=== PATIENT | male | born 1965 | race Caucasian/White ===

== ENCOUNTER → 2017-12-11 06:13 | Outpatient (CLI) | payer BC, SELFPAY ==
--- NOTE | 2017-12-11 06:21 | CDU_ITS ---
Reason For Study: LEFT SIDED NUMBNESS Rt. Velocities/BP Lt. Velocities/BP Prox CCA 73.3/25.8 cm/sec. Prox CCA 86.2/30.5 cm/sec. Mid CCA 60.4/18.8 cm/sec. Mid CCA 82.7/27.0 cm/sec. Dist CCA 62.1/22.3 cm/sec. Dist CCA 64.5/19.9 cm/sec. Prox ICA 59.8/24.6 cm/sec. Prox ICA 70.4/21.7 cm/sec. Mid ICA 60.1/26.3 cm/sec. Mid ICA 55.0/20.0 cm/sec. Dist ICA 60.5/27.1 cm/sec. Dist ICA 62.1/27.1 cm/sec. Rt. ICA/CCA = 60.5/60.4=1.0. Lt. ICA/CCA = 70.4/82.7=0.85. Prox ECA 75.6/15.8 cm/sec. Prox ECA 79.7/21.1 cm/sec. Rt. Vert. 46.8/19.6 cm/sec. Lt. Vert. 35.5/13.8 cm/sec. Right Extracranial There is intimal thickening but no significant atherosclerotic plaque noted in the right common carotid artery. There is intimal thickening but no significant atherosclerotic plaque noted in the right internal carotid artery. There is no significant atherosclerotic plaque noted in the right external carotid artery. Antegrade flow is noted in the right vertebral artery. Left Extracranial There is intimal thickening but no significant atherosclerotic plaque noted in the left common carotid artery. There is intimal thickening but no significant atherosclerotic plaque noted in the left internal carotid artery. There is no significant atherosclerotic plaque noted in the left external carotid artery. Antegrade flow is noted in the left vertebral artery. Interpretation Summary No significant atherosclerotic plaque or stenosis noted in the internal carotid arteries bilaterally. Flow within the vertebral arteries is antegrade bilaterally. Ordering Physician: Demetrius Tian Referring Physician: Demetrius Tian Performed By: Tara Modi RDCS, RVT
--- NOTE | 2017-12-11 09:25 | STRESSREP ---
Stress Test Report Date: 12/11/2017 Procedure: Exercise tolerance test/imaging study Indications: Chest pain Consent: Per the patient Procedure: The patient exercised on a Roberto protocol for 10 minutes and 30 seconds completing Stage III and 1 minute and 30 seconds of Stage IV achieving a peak heart rate of 171 bpm (101 % predicted maximal heart rate) with a peak blood pressure 142/80 mmHg and a peak MET capacity of 12 METs. The baseline ECG demonstrated normal sinus rhythm with nonspecific ST/T-wave abnormality. The peak exercise ECG demonstrated no obvious ECG changes. There were no cardiac dysrhythmias pretest, during exercise, or recovery. The functional capacity was considered good. There was no complaint of chest discomfort during exercise or recovery. The examination was discontinued secondary to leg discomfort. Impression: 1. Technically adequate (percent predicted maximal heart rate greater than 85%) exercise tolerance test 2. Peak exercise ECG demonstrated no obvious ECG changes 3. There were no cardiac dysrhythmias pretest, during exercise, or recovery. 4. Nuclear images pending Myocardial perfusion imaging study: Technique: The patient was injected with 11.9 mCi of technetium 99m Cardiolite and subsequently rest SPECT Cardiolite nuclear imaging was obtained in the horizontal long, vertical long, and short axis views. The patient exercised on a Roberto protocol for 10 minutes and 30 seconds minutes completing Stage III and 1 minute and 30 seconds of Stage IV achieving a peak heart rate of 171 bpm (101 % predicted maximal heart rate) with a peak blood pressure 142/80 mmHg and a peak MET capacity of 12 METs. The patient was injected with 36 mCi of technetium 99m Cardiolite and subsequently stress SPECT Cardiolite nuclear imaging was obtained in the horizontal long, vertical long, and short axis views. A gated Cardiolite study at peak stress was obtained. Interpretation: Rest and stress SPECT Cardiolite nuclear imaging status post realignment and normalization demonstrates the appearance of relative uniform tracer uptake and myocardial perfusion appearing within normal limits. There is end systolic thickening and brightening. The reported LVEF is 63 %. Impression: 1. Rest and stress SPECT Cardiolite nuclear imaging demonstrate relative uniform tracer uptake and myocardial perfusion appearing within normal limits. 2. The gated Cardiolite study reports an LVEF of 63 %. This note was generated with Sez[employer]ation software. It may contain incorrect words, spelling, and punctuation that were not noted in checking the note before signing.
--- NOTE | 2017-12-11 09:31 | STRESSREP_ITS ---
Stress Test Report Date: 12/11/2017 Procedure: Exercise tolerance test/imaging study Indications: Chest pain Consent: Per the patient Procedure: The patient exercised on a Roberto protocol for 10 minutes and 30 seconds completing Stage III and 1 minute and 30 seconds of Stage IV achieving a peak heart rate of 171 bpm (101 % predicted maximal heart rate) with a peak blood pressure 142/80 mmHg and a peak MET capacity of 12 METs. The baseline ECG demonstrated normal sinus rhythm with nonspecific ST/T-wave abnormality. The peak exercise ECG demonstrated no obvious ECG changes. There were no cardiac dysrhythmias pretest, during exercise, or recovery. The functional capacity was considered good. There was no complaint of chest discomfort during exercise or recovery. The examination was discontinued secondary to leg discomfort. Impression: 1. Technically adequate (percent predicted maximal heart rate greater than 85% ) exercise tolerance test 2. Peak exercise ECG demonstrated no obvious ECG changes 3. There were no cardiac dysrhythmias pretest, during exercise, or recovery. 4. Nuclear images pending Myocardial perfusion imaging study: Technique: The patient was injected with 11.9 mCi of technetium 99m Cardiolite and subsequently rest SPECT Cardiolite nuclear imaging was obtained in the horizontal long, vertical long, and short axis views. The patient exercised on a Roberto protocol for 10 minutes and 30 seconds minutes completing Stage III and 1 minute and 30 seconds of Stage IV achieving a peak heart rate of 171 bpm (101 % predicted maximal heart rate) with a peak blood pressure 142/80 mmHg and a peak MET capacity of 12 METs. The patient was injected with 36 mCi of technetium 99m Cardiolite and subsequently stress SPECT Cardiolite nuclear imaging was obtained in the horizontal long, vertical long, and short axis views. A gated Cardiolite study at peak stress was obtained. Interpretation: Rest and stress SPECT Cardiolite nuclear imaging status post realignment and normalization demonstrates the appearance of relative uniform tracer uptake and myocardial perfusion appearing within normal limits. There is end systolic thickening and brightening. The reported LVEF is 63 %. Impression: 1. Rest and stress SPECT Cardiolite nuclear imaging demonstrate relative uniform tracer uptake and myocardial perfusion appearing within normal limits. 2. The gated Cardiolite study reports an LVEF of 63 %. This note was generated with Re[employer] software. It may contain incorrect words, spelling, and punctuation that were not noted in checking the note before signing.
== END ==
PROVIDERS: Family Provider Family Medicine; PCP Family Medicine; Visit Provider Family Medicine
DX: R07.9 Chest pain, unspecified (principal); R20.0 Anesthesia of skin; Z87.898 Personal history of other specified conditions
CPT/HCPCS: 78452; 93017; 93880; A9500; A4216

== ENCOUNTER 2018-02-18 13:00 | Outpatient (RCR) | payer BC, SELFPAY ==
--- NOTE | 2018-02-04 16:11 | HP.PTEVAL_ITS ---
Patient's Visit Information JESSICA SEGURA is a 52 year old M referred to Physical Therapy by Demetrius Tian with a diagnosis of Bilateral Groin Strain. 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 He can walk and do all normal things at this point- but if he turns a little bit wrong or pivots the pain is excrutiating. He can't run- the moment he takes off the pain just immediatly comes and is horrible. MD doesn't need a CAT scan if it was torn he would not be moving. Both sides are bad but the left has been more recently but both bother him. When he tried to run it hurt for acouple of days after. No images. Worst: 6/10 Agg: stepping wrong or pivoting. The pain happens he cringes for a minute then things level back out. Describes as sharp.shooting and stabbing. Best: 0/10: Eases: wait. No radiating pain. Walks about 45 min a day- but would like to be able to be painfree with all activities. PMhx/Meds : no change since scanned in chart. - Objective Gait: no deviation noted with walking. HR/TR: able without incidence. SLS: 30 sec without LOB bilateral. ROM: Ankle: WNL, Knee: WNL, Lumbar: WNL, Hip: IR: decreased by 50% Hip extn: decreased by 50% hip extension with distraction: WNL, . Strength: Ankle: 5/5, Knee: 5/5, Core: fair minus, Hip: flexion: 4/5 with pain, Extn: 4/5 with pain, Abd: 4/5 with pain, Add: 4/5 with pain, IR/ER: 4/5 with pain. Special Test: [place]: negative, Sc[place]: negative, 90/90: positive, LLD : negative, Pelvic Alignment: WNL. Palpation: tender along hip flexor bilaterally - Goals Goal 1:: Patient will be I with HEP and progression Goal Time Frame: 4-6 Weeks Goal 2:: Patient will demo full ROM without pain in the hip Goal Time Frame: 4-6 Weeks Goal 3:: Patient will report 0/10 pain with all activity Goal Time Frame: 4-6 Weeks Goal 4:: Patient will demo 5/5 strength in LE Goal Time Frame: 4-6 Weeks - Rehabilitation Potential Physical Therapy Diagnosis: Patient presents with hypmobility- he has decreased ROM, strength and muscular endurance s/p fall - Anticipated Interventions Patient/Client Instruction: Educate patient on: Benefits of Fitness Program Thank you for the opportunity to evaluate your patient. For Medicare and Medicare HMO plans, please review the plan of care and approve it. It will need to be FAXED BACK to us at [phone] for Medicare purposes. Please let me know if there are questions or concerns regarding this plan of care. Physician Signature: Date:
--- NOTE | 2018-07-09 15:03 | HP.PT.NRP ---
HP - Discharge Summary (1) - Patient Information JESSICA SEGURA was seen in my office for initial evaluation on 02/04/18. The following Plan of Care was established for this patient: Initial Frequency: 1x/Week Initial Duration: 4 Weeks - Anticipated Interventions Patient/Client Instruction: Educate patient on: Benefits of Fitness Program This patient was last seen in our office . Pertinent comments regarding their Physical therapy will appear below: Patient has not attended physical therapy in over 60 days- appropriate to discharge and return to MD for further evaluation as needed. At this point I will be discontinuing this patient from physical therapy. I would be happy to see this patient again in the future if found appropriate by the physician. Thank you! BRITTANIE PintoT
== END 2018-02-18 19:00 | disposition home or self-care (01) ==
LOC: PT 13:00
PROVIDERS: Family Provider Family Medicine; PCP Family Medicine; Visit Provider Family Medicine
DX: S76.219D Strain of adductor muscle, fascia and tendon of unspecified thigh, subsequent encounter (principal)
CPT/HCPCS: 97110; 97161; 97530

== ENCOUNTER → 2018-05-29 09:44 | Outpatient (CLI) | payer BC, SELFPAY ==
--- NOTE | 2018-05-29 10:01 | CT_ITS ---
STUDY: CT ABDOMEN AND PELVIS WITHOUT CONTRAST REASON FOR EXAM: Male, 52 years old. One week history of left-sided flank pain. History of kidney stones. RADIATION DOSAGE (If Supplied By Facility): CTDIvol = ( 7.19 ) mGy, DLP = ( 364.59 ) mGycm TECHNIQUE: Transaxial images were obtained from the dome of the diaphragm to the symphysis pubis without oral contrast, and without intravenous contrast. Sagittal and coronal images were reconstructed. Individualized dose optimization techniques were used for this CT. COMPARISON: None. FINDINGS: The visualized lung bases are unremarkable. The visualized portions of the heart are within normal limits. Normal liver. Normal gallbladder and extrahepatic biliary system. Normal spleen. Normal pancreas. Normal bilateral adrenal glands. Normal right kidney. There is a 3.6 mm nonobstructive calculus in the lower pole calyx of the left kidney. Normal visualized stomach. Normal small intestine. Normal colon. The appendix is visualized and appears normal. There is scattered atherosclerotic calcification of the abdominal aorta, without a demonstrated aneurysm. Normal inferior vena cava. Normal retroperitoneum. Normal urinary bladder. Normal abdominal wall. Grade 1 anterior listhesis of L5 on S1 with spondylolysis of the pars interarticularis of the L5 vertebrae. There is also evidence of disc space narrowing and disc degeneration at that level. CT/Abdomen/Pelvis without Cont IMPRESSION: There is a 3.6 mm nonobstructive calculus in the lower pole calyx of the left kidney. Electronically Signed: Nikhil Vasquez MD at 10:35 EST Tel [phone], Service support ,
--- OUTSIDE RECORDS SUMMARY | 2018-08-03 01:44 | XMS RPT_ITS ---
:1965 Author Organization OHIP Care Team Providers Name Role Phone CHARISSA BELLE II Attending Unavailable CHARISSA BELLE II Attending Unavailable PATITO PIERRE Admitting Unavailable VACCARIELLO, PATITO Attending Unavailable PATITO PIERRE Primary Care Unavailable TERESA BASILIO Referring Unavailable Vaccariello, Patito Primary Care Unavailable NAPOLEON REDMAN Attending Unavailable Vaccarijocelyn, Patito Attending Unavailable VaccariPattio banks Referring Unavailable VaccPatito martínez Primary Care Unavailable Vacctanya, Patito Attending Unavailable VaccariPatito banks Referring Unavailable Vaccarijocelyn, Patito Primary Care Unavailable Bereket Trejo Attending Unavailable Vaccariello, Patito Referring Unavailable PROBLEMS PROBLEMS DATE TYPE CONDITION / CODE ATTENDING STATUS SOURCE 02/18/2018 Unknown S76.219D - Strain Vacctanya, Active Allison of adductor [facility] muscle, [facility] and tendon of Repository unspecified thigh, subsequent encounter / S76.219D(ICD-10) 01/08/2018 Unknown R07.9 - Chest MoodispaBereket rausch Active Allison pain, unspecified [facility] / R07.9(ICD-10) Hospital Repository PROCEDURES PROCEDURES No Procedure Records FoundRESULTS RESULTS ABDOMEN/PELVIS WITHOUT Observed: 05/29/2018 Status: F Source: ALLISON CONT 10:01 AM [facility] REPOSITORY [facility] Imaging Services [address] [place] [address] Abdomen/Pelvis without Cont MR#: [id number] Acct: [id number] Name: JESSICA SEGURA Rep #: [id number] : 1965 M 52 From: Nikhil Vasquez MD PCP: Patito Pierre MD Status: REG CLI Study: Abdomen/Pelvis without Cont Date of Exam: 05/29/18 Exam# [id number] Ordering Dr: Napoleon Redman STUDY: CT ABDOMEN AND PELVIS WITHOUT CONTRAST REASON FOR EXAM: Male, 52 years old. One week history of left-sided flank pain. History of kidney stones. RADIATION DOSAGE (If Supplied By Facility): CTDIvol = ( 7.19 ) mGy, DLP = ( 364.59 ) mGycm TECHNIQUE: Transaxial images were obtained from the dome of the diaphragm to the symphysis pubis without oral contrast, and without intravenous contrast. Sagittal and coronal images were reconstructed. Individualized dose optimization techniques were used for this CT. COMPARISON: None. FINDINGS: The visualized lung bases are unremarkable. The visualized portions of the heart are within normal limits. Normal liver. Normal gallbladder and extrahepatic biliary system. Normal spleen. Normal pancreas. Normal bilateral adrenal glands. Normal right kidney. There is a 3.6 mm nonobstructive calculus in the lower pole calyx of the left kidney. Normal visualized stomach. Normal small intestine. Normal colon. The appendix is visualized and appears normal. There is scattered atherosclerotic calcification of the abdominal aorta, without a demonstrated aneurysm. Normal inferior vena cava. Normal retroperitoneum. Normal urinary bladder. Normal abdominal wall. Grade 1 anterior listhesis of L5 on S1 with spondylolysis of the pars interarticularis of the L5 vertebrae. There is also evidence of disc space narrowing and disc degeneration at that level. CT/Abdomen/Pelvis without Cont IMPRESSION: There is a 3.6 mm nonobstructive calculus in the lower pole calyx of the left kidney. Electronically Signed: Nikhil Vasquez MD at 10:35 EST Tel [phone], Service support , CC: TERESA REDMAN; Patito Pierre MD Residence Hall Director: Signed DORSAL SPINE 2 Observed: 03/25/2018 Status: F Source: [facility] VIEWS 4:31 PM [place] [address] Patient: JESSICA SEGURA Phone#: : 1965 Age: 52 Gender: M Pt. Type: Out Account: [id number] Location: Ordering: PATITO PIERRE Exam Date: 03/25/2018/16:04 Family Phys: Charge Code: [id number] Physician: [place] Order #: [id number] DLP Dose#: PROCEDURE: X-RAY DORSAL SPINE 2 VIEWS COMPARISON: None. INDICATIONS: M54.6 FINDINGS: BONES: Mild degenerative changes of the spine are present. There is minimal curvature of the thoracic spine to the right. DISC SPACES: Normal. No significant disc height narrowing, subluxation, or endplate abnormality. PARASPINOUS: Negative. No paraspinous abnormality is seen. OTHER: Negative. CONCLUSION: No acute disease. Dictated by: Kayla Trinidad MD on 03/25/2018 at 16:35 Approved by: Kayla Trinidad MD on 03/25/2018 at 16:35 INITAL EVALUATION (1) Observed: 02/04/2018 Status: F Source: NOVELTY - PT 4:11 PM [facility] REPOSITORY [facility] Physical Therapy [facility] [address] [place], [place] [address] Fax REHABILITATION SERVICES INITIAL EVALUATION MR#: [id number] Acct: [id number] Name: JESSICA SEGURA Rep #: [id number] : 1965 52 From: Feli Colunga DPT Referring Dr.: Patito Pierre MD Status: REG RCR Insurance: [employer] SELF PAY INSURANCE Patient's Visit Information JESSICA SEGURA is a 52 year old M referred to Physical Therapy by Patito Pierre with a diagnosis of Bilateral Groin Strain. 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 He can walk and do all normal things at this point- but if he turns a little bit wrong or pivots the pain is excrutiating. He can't run- the moment he takes off the pain just immediatly comes and is horrible. doesn't need a CAT scan if it was torn he would not be moving. Both sides are bad but the left has been more recently but both bother him. When he tried to run it hurt for acouple of days after. No images. Worst: 6/10 Agg: stepping wrong or pivoting. The pain happens he cringes for a minute then things level back out. Describes as sharp.shooting and stabbing. Best: 0/10: Eases: wait. No radiating pain. Walks about 45 min a day- but would like to be able to be painfree with all activities. PMhx/Meds: no change since scanned in chart. - Objective Gait: no deviation noted with walking. HR/TR: able without incidence. SLS: 30 sec without LOB bilateral. ROM: Ankle: WNL, Knee: WNL, Lumbar: WNL, Hip: IR: decreased by 50% Hip extn: decreased by 50% hip extension with distraction: WNL,. Strength: Ankle: 5/5, Knee: 5/5, Core: fair minus, Hip: flexion: 4/5 with pain, Extn: 4/5 with pain, Abd: 4/5 with pain, Add: 4/5 with pain, IR/ER: 4/5 with pain. Special Test: [place]: negative, Scour: negative, 90/90: positive, LLD: negative, Pelvic Alignment: WNL. Palpation: tender along hip flexor bilaterally - Goals Goal 1:: Patient will be I with HEP and progression Goal Time Frame: 4-6 Weeks Goal 2:: Patient will demo full ROM without pain in the hip Goal Time Frame: 4-6 Weeks Goal 3:: Patient will report 0/10 pain with all activity Goal Time Frame: 4-6 Weeks Goal 4:: Patient will demo 5/5 strength in LE Goal Time Frame: 4-6 Weeks - Rehabilitation Potential Physical Therapy Diagnosis: Patient presents with hypmobility- he has decreased ROM, strength and muscular endurance s/p fall - Anticipated Interventions Patient/Client Instruction: Educate patient on: Benefits of Fitness Program Thank you for the opportunity to evaluate your patient. For Medicare and Medicare HMO plans, please review the plan of care and approve it. It will need to be FAXED BACK to us at [phone] for Medicare purposes. Please let me know if there are questions or concerns regarding this plan of care. Physician Signature: Date: <Electronically signed by Feli Colunga DPT> 02/04/18 1611 CC: Patito Pierre MD ELR Signed For Medicare only, by signing this I certify the plan of care. Physicians Signature Date CAROTID DUPLEX Observed: 12/12/2017 Status: F Source: ALLISON ULTRASOUND 5:24 PM [facility] REPOSITORY [facility] Cardiovascular Services [address] [place] [address] Carotid Duplex Ultrasound 12/11/17 0835 MR#: [id number] Acct: [id number] Name: JESSICA SEGURA Rep #: [id number] : 1965 52 From: Albert Estevez MD Attending Dr: Patito Pierre Status: REG CLI Ordering Dr: Patito Pierre Date: 12/11/17 Location: CVS Sex: M C Admitted: Reason For Study: LEFT SIDED NUMBNESS Rt. Velocities/BP Lt. Velocities/BP Prox CCA 73.3/25.8 cm/sec. Prox CCA 86.2/30.5 cm/sec. Mid CCA 60.4/18.8 cm/sec. Mid CCA 82.7/27.0 cm/sec. Dist CCA 62.1/22.3 cm/sec. Dist CCA 64.5/19.9 cm/sec. Prox ICA 59.8/24.6 cm/sec. Prox ICA 70.4/21.7 cm/sec. Mid ICA 60.1/26.3 cm/sec. Mid ICA 55.0/20.0 cm/sec. Dist ICA 60.5/27.1 cm/sec. Dist ICA 62.1/27.1 cm/sec. Rt. ICA/CCA = 60.5/60.4=1.0. Lt. ICA/CCA = 70.4/82.7=0.85. Prox ECA 75.6/15.8 cm/sec. Prox ECA 79.7/21.1 cm/sec. Rt. Vert. 46.8/19.6 cm/sec. Lt. Vert. 35.5/13.8 cm/sec. Right Extracranial There is intimal thickening but no significant atherosclerotic plaque noted in the right common carotid artery. There is intimal thickening but no significant atherosclerotic plaque noted in the right internal carotid artery. There is no significant atherosclerotic plaque noted in the right external carotid artery. Antegrade flow is noted in the right vertebral artery. Left Extracranial There is intimal thickening but no significant atherosclerotic plaque noted in the left common carotid artery. There is intimal thickening but no significant atherosclerotic plaque noted in the left internal carotid artery. There is no significant atherosclerotic plaque noted in the left external carotid artery. Antegrade flow is noted in the left vertebral artery. Interpretation Summary No significant atherosclerotic plaque or stenosis noted in the internal carotid arteries bilaterally. Flow within the vertebral arteries is antegrade bilaterally. Ordering Physician: Patito Pierre Referring Physician: Patito Pierre Performed By: Tara Modi RDCS, RVT 12/12/17 1724 Date Albert Estevez MD CC: Patito Pierre Date Dictated: 12/11/17 0835 Date Transcribed: 12/12/171723 Residence Hall Director: Signed STRESS REPORT Observed: 12/11/2017 Status: F Source: NOVELTY 9:31 AM [facility] REPOSITORY [facility] Cardiovascular Services [address] [place] [address] MR#: [id number] Acct: [id number] Name: JESSICA SEGURA Rep #: [id number] : 1965 52 From: Bereket Trejo MD Primary Care: Patito Pierre Status: REG CLI Ordering Dr: Sex: Tom Dodd Stress Test Report Date: 12/11/2017 Procedure: Exercise tolerance test/imaging study Indications: Chest pain Consent: Per the patient Procedure: The patient exercised on a Roberto protocol for 10 minutes and 30 seconds completing Stage III and 1 minute and 30 seconds of Stage IV achieving a peak heart rate of 171 bpm (101 % predicted maximal heart rate) with a peak blood pressure 142/80 mmHg and a peak MET capacity of 12 METs. The baseline ECG demonstrated normal sinus rhythm with nonspecific ST/T-wave abnormality. The peak exercise ECG demonstrated no obvious ECG changes. There were no cardiac dysrhythmias pretest, during exercise, or recovery. The functional capacity was considered good. There was no complaint of chest discomfort during exercise or recovery. The examination was discontinued secondary to leg discomfort. Impression: 1. Technically adequate (percent predicted maximal heart rate greater than 85%) exercise tolerance test 2. Peak exercise ECG demonstrated no obvious ECG changes 3. There were no cardiac dysrhythmias pretest, during exercise, or recovery. 4. Nuclear images pending Myocardial perfusion imaging study: Technique: The patient was injected with 11.9 mCi of technetium 99m Cardiolite and subsequently rest SPECT Cardiolite nuclear imaging was obtained in the horizontal long, vertical long, and short axis views. The patient exercised on a Roberto protocol for 10 minutes and 30 seconds minutes completing Stage III and 1 minute and 30 seconds of Stage IV achieving a peak heart rate of 171 bpm (101 % predicted maximal heart rate) with a peak blood pressure 142/80 mmHg and a peak MET capacity of 12 METs. The patient was injected with 36 mCi of technetium 99m Cardiolite and subsequently stress SPECT Cardiolite nuclear imaging was obtained in the horizontal long, vertical long, and short axis views. A gated Cardiolite study at peak stress was obtained. Interpretation: Rest and stress SPECT Cardiolite nuclear imaging status post realignment and normalization demonstrates the appearance of relative uniform tracer uptake and myocardial perfusion appearing within normal limits. There is end systolic thickening and brightening. The reported LVEF is 63 %. Impression: 1. Rest and stress SPECT Cardiolite nuclear imaging demonstrate relative uniform tracer uptake and myocardial perfusion appearing within normal limits. 2. The gated Cardiolite study reports an LVEF of 63 %. This note was generated with Avistaation software. It may contain incorrect words, spelling, and punctuation that were not noted in checking the note before signing. 12/11/17930 <Electronically signed by Bereket Trejo MD> Date Bereket Trejo MD CC: Patito Pierre Date Dictated: 12/11/17924 Date Transcribed: 12/11/17924 Residence Hall Director: PM Signed PROGRESS Observed: 11/06/2017 Status: COMPLETED Source: [place]PHY 8:29 AM [facility] REPOSITORY HNO ID: [id number] Author: Charissa Belle II Service: (none) Author Type: [employer] Type: Progress Notes Filed: 11/06/2017 8:34 AM Note Text: ASSESSMENT/PLAN: 1. Regular astigmatism, bilateral - ICD9: 367.21, ICD10: H52.223 Ocular health maintained with contact lens use. Sen stable. Continue with daily disposable contact lenses. Recheck in one year. Remaking glasses to different PD (60 to 59) for column misalignment. I have confirmed and edited as necessary the relevant ophthalmic history, review of systems, surgical history, and ophthalmological examination findings as obtained by the ophthalmic technical staff. I have seen and examined Jessica Segura. I have discussed the examination findings, diagnosis, and treatment options with the patient and/or the patient's family. I have also reviewed and agree with the assessment and plan as stated above and agree with all its relevant components. I gave the patient the opportunity to ask questions about the findings, diagnosis, and treatment options. Charissa Belle, RAJ, OD PROGRESS Observed: 09/13/2017 Status: COMPLETED Source: [place] 12:27 PM [facility] REPOSITORY HNO ID: [id number] Author: Charissa Belle II Service: (none) Author Type: [employer]EMENT Type: Progress Notes Filed: 09/13/2017 12:31 PM Note Text: ASSESSMENT/PLAN: 1. Regular astigmatism, bilateral - ICD9: 367.21, ICD10: H52.223 (primary diagnosis) 2. Presbyopia - ICD9: 367.4, ICD10: H52.4 Recommend update glasses to maximize visual performance especially at near. Past use of monovision contacts but recent issues with vision and comfort. Will order in trials of new sen. Patient will return wearing favorite type for evaluation. 3. Combined forms of age-related cataract, bilateral - ICD9: 366.19, ICD10: H25.813 Trace cataract in both eyes. Well tolerated at this time. Monitor as instructed. I have confirmed and edited as necessary the relevant ophthalmic history, review of systems, surgical history, and ophthalmological examination findings as obtained by the ophthalmic technical staff. I have seen and examined Jessica Segura. I have discussed the examination findings, diagnosis, and treatment options with the patient and/or the patient's family. I have also reviewed and agree with the assessment and plan as stated above and agree with all its relevant components. I gave the patient the opportunity to ask questions about the findings, diagnosis, and treatment options. Charissa Belle, II, OD ALLERGIES ALLERGIES DATE TYPE / CODE NAME / CODE REACTION SEVERITY SOURCE Drug NO KNOWN [facility] Class/12531 ALLERGIES [facility] 1003(SNOMED Repository CT) ENCOUNTERS ENCOUNTERS ADMIT/DISCHARGE ACCOUNT ADMITTING ENCOUNTER LOCATION SOURCE NUMBER CLASS 05/29/2018 [id number] [facility] ing:CT Repository 03/25/2018/03/25/20 [id number] VACCARIELLO, [address] Repository 02/18/2018 [id number] [facility] ing:PT Repository 12/11/2017 [id number] [facility] ing:[facility] Repository 12/11/2017 [id number] Ambulatory BMS[facility] Repository 11/06/2017/11/08/19 [id number] Ambulatory [address] Repository 09/13/2017/09/15/19 [id number] Ambulatory [address] Repository PAYERS PAYERS ENCOUNTER GUARANTOR PAYER SUBSCRIBER SOURCE 05/29/2018 JESSICA Faulkner [facility] [id number] Insurance:ANTHEMPolicy GRANTDOB: [place], [place] Number: [id number] Hospital [address]Xex: (616) [id number] Repository [phone] () Date:[id number], [place] [address]SQ: 05/29/2018 Secondary NOT GIVENUNK [facility] Insurance:SELF PAY [facility] Number: Effective Repository Date:2018-05-29 03/25/2018 JESSICA Faulkner Eric Hayes GRANTDOB: Insurance:LIABILITY GRANTDOB: [facility] [id number] [facility] [id number] [facility], Number: 34 [id number] N [facility] [address]Ref: 2Effective Date:[place] [address] Name:F1 (HP) 03/25/2018 Secondary JESSICA Dillon Insurance:ANTHEM BLUE GRANTDOB: [facility] [id number] [facility] OUTPATIENTPolic [address] [place], Repository Number: [id number] Date:Plan Name:B2 02/18/2018 JESSICA D Primary JESSICA D [place] [id number] Insurance:ANTHEMPolicy GRANTDOB: [facility] [place] Number: [id number] Hospital [address]Mty: (330 [id number] Repository [phone] () Date:7404-13-20DW [address] [place] [address]JE: 02/18/2018 Secondary NOT GIVENUNK [place] Insurance:SELF PAY [facility] Number: Effective Repository Date:2018-01-30 12/11/2017 JESSICA D Primary JESSICA D [facility] [id number] Insurance:ANTHEMPolicy [facility] [place] Number: [id number] [facility] [address]Opy: (330 [id number] Repository [phone] () Date:[id number] [address] [address]TG: 12/11/2017 Secondary NOT GIVENUNK [facility] Insurance:SELF PAY [facility] Number: Effective Repository Date:2017-11-28 12/11/2017 JESSICA D Primary JESSICA Lucie [facility] [id number] Insurance:ANTHEMPolicy [facility] [place] Number: [id number] Hospital [address]Vow: (251) [id number] Repository [phone] () Date:[id number] [address] [address]RW: 12/11/2017 Secondary NOT GIVENUNK [place] Insurance:SELF PAY [facility] Number: Effective Repository Date:2017-12-11
== END ==
PROVIDERS: Family Provider Family Medicine; PCP Family Medicine; Visit Provider Physician Assistant
DX: R10.9 Unspecified abdominal pain (principal); R39.9 Unspecified symptoms and signs involving the genitourinary system; Z87.442 Personal history of urinary calculi
CPT/HCPCS: 74176